=== PATIENT | female | born 1980 | race Caucasian/White ===

== ENCOUNTER 2017-06-29 20:46 | Emergency (ER) | payer OTHER ==
--- NOTE | 2017-06-29 22:37 | XRAY Preliminary Report ---
Exam: XR Ankle 3 View RT IMPRESSION: 1. No acute fracture or dislocation seen in the ankle. [facility] SITE ID: [id number]
--- NOTE | 2017-06-29 22:39 | XRAY Report ---
EXAM: RIGHT ANKLE RADIOGRAPHY EXAM DATE: 06/29/2017 10:21 PM. CLINICAL HISTORY: Lateral malleolus tenderness. COMPARISON: None. TECHNIQUE: 3 views. FINDINGS: Bones: No acute fracture seen. Joints: No dislocation. Ankle mortise appears intact. No ankle joint effusion identified. Soft Tissues: Mild soft tissue swelling. IMPRESSION: 1. No acute fracture or dislocation seen in the ankle. [facility] Referring Provider Line: [phone] SITE ID: [id number]
--- NOTE | 2017-06-29 22:48 | ED Physician Documentation ---
PD HPI LOWER EXT INJURY - Stated complaint Stated Complaint: GLF - Chief complaint Chief Complaint: Ext Problem - History obtained from History obtained from: Patient - History of Present Illness PD HPI LOW EXT INJURY LOCATION: Right, Ankle Type of injury: Twist Where injury occurred: Work Timing - onset: How many minutes ago (30) Timing - details: Abrupt onset Improved by: Rest, Ice, Immobilization Worsened by: Moving, Palpating Associated symptoms: Swelling Similar symptoms before: Has not had sx before Recently seen: Not recently seen - Additional information Additional information: Patient is a 36 year old female with no significant past medical history who is presenting to the emergency department for right sided ankle pain. Patient was at work and slipped when working with a wheel chair. patient fell twisting her right ankle and hitting her right elbow. Patient denied any loc or facial trauma. Review of Systems Constitutional: denies: Fever, Chills Eyes: denies: Decreased vision, Photophobia Ears: denies: Drainage/discharge Nose: denies: Epistaxis Throat: denies: Dental pain / toothache Respiratory: denies: Dyspnea, Cough GI: denies: Nausea, Vomiting : reports: Reviewed and negative Skin: denies: Lesions, Abrasion (s) Musculoskeletal: reports: Extremity pain, Extremity swelling Neurologic: denies: Generalized weakness, Focal weakness, Numbness, Headache, Head injury, LOC Immunocompromised: denies: Immunocompromised PD PAST MEDICAL HISTORY - Past Medical History Past Medical History: No - Past Surgical History Past Surgical History: Yes General: Cholecystectomy /[employer]: section - Allergies Allergies/Adverse Reactions: Allergies Allergy/AdvReac Type Severity Reaction Status Date / Time No Known Drug Allergies Allergy Verified 06/29/17 21:07 - Social History Does the pt smoke?: No Smoking Status: Never smoker Does the pt drink ETOH?: Yes ETOH Use: Wine Does the pt have substance abuse?: No - Immunizations Immunizations are current?: Yes PD ED PE NORMAL - Vitals Vital signs reviewed: Yes - General General: Alert and oriented X 3 - HEENT HEENT: Atraumatic, PERRL - Neck Neck: No bony TTP - Cardiac Cardiac: RRR, No murmur - Respiratory Respiratory: No respiratory distress, Clear bilaterally - Abdomen Abdomen: Soft, Non tender, Non distended - Derm Derm: Normal color, Warm and dry - Neuro Neuro: Alert and oriented X 3, No motor deficit, No sensory deficit, Normal speech - Psych Psych: Normal mood, Normal affect PD ED PE EXPANDED - Extremities Extremities: Tenderness, Swelling, Right elbow (minimal tenderness, full rom of motion, no ecchymosis or swelling), Right ankle (mild tenderness to palpation of right lat malleolus). No: Deformity, Bruising Results - Vitals Vitals: Vital Signs - 24 hr 06/29/17 21:02 Temperature 37.0 C Heart Rate 64 Respiratory 16 Rate Blood Pressure 145/86 H O2 Saturation 99 Oxygen O2 Source Room air - Rads (name of study) right ankle x-ray Radiology: Final report received (no acute abnormality) PD MEDICAL DECISION MAKING - ED course Complexity details: reviewed old records, reviewed results, re-evaluated patient , considered differential, d/w patient ED course: Patient was seen and examined at bedside. Ice was placed on the wound and patient was sent for imaging. when patient returned the results were reviewed. there was no acute fracture or dislocation. patient was treated with ibuprofen for pain. Patient required no further work up and was stable for discharge with outpatient follow up. Departure - Departure Disposition: 01 Home, Self Care Clinical Impression: Mild ankle sprain Condition: Good Instructions: ED Sprain Ankle Follow-Up: primary,care provider [Other] - As Needed Comments: Your x-ray today was within normal limits. there was no acute fracture or dislocation. You should continue to ice your elbow and take motrin or tylenol as needed for pain. You may become more sore tomorrow, it is not unexpected. You may return to work as tolerated.
[2017-06-29] MEDS ORDERED: IBUPROFEN 600 MG TABLET PO STA (22:50)
[2017-06-29] MEDS ORDERED: IBUPROFEN 600 MG TABLET PO ONE (23:00)
[2017-06-29 23:08] VITALS: BP 139/89
== END 2017-06-29 23:07 | disposition home or self-care (01) ==
LOC: ED 20:46
DX: S93.401A Sprain of unspecified ligament of right ankle, initial encounter (principal); W01.0XXA Fall on same level from slipping, tripping and stumbling without subsequent striking against object, initial encounter; X50.9XXA Other and unspecified overexertion or strenuous movements or postures, initial encounter; Y93.89 Activity, other specified; Y99.0 Civilian activity done for income or pay
CPT/HCPCS: 73610; 99283; A9270